=== PATIENT | male | born 1985 | race American Indian/Alaskan Native ===

== ENCOUNTER 2023-10-20 05:59 | Emergency (ER) | payer OTHER, SELFPAY ==
[2023-10-20 06:08] VITALS: BP 131/75; PULSE 96; RESP 18; TEMP 37.4; O2SAT 98; BMI 36.1
--- NOTE | 2023-10-20 06:18 | ED.GENADULT ---
HPI - General Adult <May Llanos DO - Last Filed: 10/21/23 06:07> General Chief complaint: Dental/Oral Stated complaint: throat swollen Time Seen by Provider: 10/20/23 06:17 Source: patient, RN notes reviewed and old records reviewed Mode of arrival: Ambulatory Limitations: no limitations History of Present Illness HPI narrative: 38-year-old male former smoker presents with complaint of his throat being swollen and painful for the past 3 days with fevers overnight. Patient states has pain bilaterally and into both ears. Has not had fevers he has been hoarse. He has been able to swallow his secretions but it is quite painful. Patient states came in tonight because it was painful but also little bit difficult to breathe because he felt like the back of his throat/tonsils were so swollen. Patient denies any chest pain or shortness of breath no nausea or vomiting, no abdominal pain. He has had some mild diarrhea. Denies any urinary symptoms. No rash or skin changes. Patient states he had recurrent tonsillitis multiple times would be in the hospital unclear if these were ER visits or actually admitted but would receive fluids, pain medication steroids have improvement and then be discharged. Was told to have episodes of tonsillitis documented to have his tonsils out and then had. About 8 years without any symptoms until this recent episode. Patient notes he has not allergy to penicillin, states this includes amoxicillin. Patient states no daily prescription medications. Denies any prior surgeries. Former smoker, no regular alcohol or recreational drugs. He is visiting for he from [place] for a . Related Data Previous Rx's Medication Instructions Recorded clindamycin HCl 300 mg capsule 300 mg PO Q8H #30 caps 10/20/23 prednisone 20 mg tablet 40 mg (2 x 20 mg) PO DAILY #10 tabs 10/20/23 Allergies Allergy/AdvReac Type Severity Reaction Status Date / Time Penicillins Allergy Severe Anaphylaxis Verified 10/20/23 06:07 Review of Systems <May Llanos DO - Last Filed: 10/21/23 06:07> Review of Systems ROS Unobtainable: All systems reviewed & are unremarkable except as noted in HPI and below Patient History <May Llanos DO - Last Filed: 10/21/23 06:07> Social History Smoking Status: Former smoker Smoking Status: Former smoker Substance Use Type: does not use Exam <May Llanos DO - Last Filed: 10/21/23 06:07> Narrative Exam Narrative: GEN: Well-nourished male, alert and oriented x 3, patient appears to be in mild distress. HEENT: Atraumatic, pupils are equal round reactive to light, extraocular movements are intact, nares are clear, TMs are clear with no fluid, there is no conjunctival pallor. Throat is erythematous, bilateral tonsillar enlargement, uvula is midline, patient has quite sedate tonsils are about 4+, patient is hoarse but not muffled. Able to swallow secretions. Patient is able to lay back on the bed as well. Bilateral cervical lymphadenopathy. HEART: Regular rate and rhythm without murmur, clicks, rubs. No carotid bruits, pulses are equal in upper and lower extremities LUNGS:Lungs clear to auscultation, no wheezes, rales, crackles, chest moves symmetrically ABD:bowel sounds normal, soft, non-tender, no guarding, rebound, rigidity, no masses noted, no hepatosplenomegaly MSCL: full range of motion, normal gait NEURO:CN 2-12 intact, sensation normal. SKIN: No rash, erythema or other skin changes noted. Initial Vital Signs Initial Vital Signs: Vital Signs Temperature 99.3 F 10/20/23 06:08 Pulse Rate 96 H 10/20/23 06:08 Respiratory Rate 18 10/20/23 06:08 Blood Pressure 131/75 10/20/23 06:08 Pulse Oximetry 98 10/20/23 06:08 Oxygen Delivery Method Room Air 10/20/23 06:08 <Ashlie Cooper DO - Last Filed: 10/20/23 08:57> Initial Vital Signs Initial Vital Signs: Vital Signs Temperature 99.3 F 10/20/23 06:08 Pulse Rate 96 H 10/20/23 06:08 Respiratory Rate 18 10/20/23 06:08 Blood Pressure 131/75 10/20/23 06:08 Pulse Oximetry 98 10/20/23 06:08 Oxygen Delivery Method Room Air 10/20/23 06:08 Course <May Llanos DO - Last Filed: 10/21/23 06:07> Orders Ordered: Discontinued Medications Dexamethasone (Dexamethasone 10 Mg/Ml Vial) 10 mg IV NOW ONE Stop: 10/20/23 06:28 Last Admin: 10/20/23 06:40 Dose: 10 mg Documented By: Sodium Chloride (Normal Saline 0.9%) 1,000 mls @ 1,000 mls/hr IV BOLUS ONE Stop: 10/20/23 07:26 Last Infusion: 10/20/23 07:37 Dose: Infused Documented By: Admin: 10/20/23 06:41 Dose: 1,000 mls/hr Documented By: Clindamycin Phosphate (Cleocin) 900 mg in 50 mls @ 50 mls/hr IV NOW ONE Stop: 10/20/23 07:27 Last Infusion: 10/20/23 07:37 Dose: Infused Documented By: Admin: 10/20/23 06:40 Dose: 50 mls/hr Documented By: Sodium Chloride (Normal Saline 0.9%) 1,000 mls @ 1,000 mls/hr IV BOLUS ONE Stop: 10/20/23 08:17 Last Admin: 10/20/23 07:36 Dose: 1,000 mls/hr Documented By: KAMLESH Ketorolac Tromethamine (Ketorolac 30 Mg/Ml Vial) 15 mg IV NOW ONE Stop: 10/20/23 06:28 Last Admin: 10/20/23 06:40 Dose: 15 mg Documented By: Vital Signs Vital signs: Vital Signs - 8 hr 10/20/23 06:08 10/20/23 06:59 10/20/23 07:00 Temperature 99.3 F Pulse Rate 96 H 92 H 91 H Respiratory Rate 18 Blood Pressure 131/75 Pulse Oximetry 98 98 97 Oxygen Delivery Method Room Air 10/20/23 07:00 10/20/23 07:30 10/20/23 07:30 Temperature Pulse Rate 82 Respiratory Rate Blood Pressure 142/84 H 120/70 Pulse Oximetry 96 Oxygen Delivery Method 10/20/23 08:00 10/20/23 08:00 Temperature Pulse Rate 82 Respiratory Rate Blood Pressure 111/59 L Pulse Oximetry 95 Oxygen Delivery Method <Ashlie Cooper DO - Last Filed: 10/20/23 08:57> Orders Ordered: Discontinued Medications Dexamethasone (Dexamethasone 10 Mg/Ml Vial) 10 mg IV NOW ONE Stop: 10/20/23 06:28 Last Admin: 10/20/23 06:40 Dose: 10 mg Documented By: Sodium Chloride (Normal Saline 0.9%) 1,000 mls @ 1,000 mls/hr IV BOLUS ONE Stop: 10/20/23 07:26 Last Infusion: 10/20/23 07:37 Dose: Infused Documented By: Admin: 10/20/23 06:41 Dose: 1,000 mls/hr Documented By: AB Clindamycin Phosphate (Cleocin) 900 mg in 50 mls @ 50 mls/hr IV NOW ONE Stop: 10/20/23 07:27 Last Infusion: 10/20/23 07:37 Dose: Infused Documented By: Admin: 10/20/23 06:40 Dose: 50 mls/hr Documented By: AB Sodium Chloride (Normal Saline 0.9%) 1,000 mls @ 1,000 mls/hr IV BOLUS ONE Stop: 10/20/23 08:17 Last Admin: 10/20/23 07:36 Dose: 1,000 mls/hr Documented By: KAMLESH Ketorolac Tromethamine (Ketorolac 30 Mg/Ml Vial) 15 mg IV NOW ONE Stop: 10/20/23 06:28 Last Admin: 10/20/23 06:40 Dose: 15 mg Documented By: Vital Signs Vital signs: Vital Signs - 8 hr 10/20/23 06:08 10/20/23 06:59 10/20/23 07:00 Temperature 99.3 F Pulse Rate 96 H 92 H 91 H Respiratory Rate 18 Blood Pressure 131/75 Pulse Oximetry 98 98 97 Oxygen Delivery Method Room Air 10/20/23 07:00 10/20/23 07:30 10/20/23 07:30 Temperature Pulse Rate 82 Respiratory Rate Blood Pressure 142/84 H 120/70 Pulse Oximetry 96 Oxygen Delivery Method 10/20/23 08:00 10/20/23 08:00 Temperature Pulse Rate 82 Respiratory Rate Blood Pressure 111/59 L Pulse Oximetry 95 Oxygen Delivery Method Medical Decision Making <May Llanos DO - Last Filed: 10/21/23 06:07> Lab Data 10/20/23 06:46 10/20/23 06:46 Labs: Lab Results 10/20/23 10/20/23 Range/Units 06:46 07:15 WBC 11.4 H (4.5-11.0) X10^3/uL RBC 5.66 (4.5-5.9) X10^6/uL Hgb 15.5 (13.5-17.5) g/dL Hct 46.1 (41-53) % MCV 81.4 (80-100) fL MCH 27.3 (26-34) PG MCHC 33.5 (30-36) % RDW 14.2 (11.6-14.8) % Plt Count 301 (150-400) X10^3/uL Neut % (Auto) 72.9 (50-75) % Lymph % (Auto) 16.8 L (25-40) % [place] % (Auto) 8.4 (3-14) % Eos % (Auto) 1.4 L (2-4) % Baso % (Auto) 0.5 (0-2) % Neut # (Auto) 8300 H (8031-7952) /uL Lymph # (Auto) 1900 (2798-7532) /uL [place] # (Auto) 1000 H (0-900) /uL Eos # (Auto) 200 (0-450) /uL Baso # (Auto) 100 (0-100) /uL Sodium 136 L (137-145) mmol/L Potassium 3.9 (3.4-5.1) mmol/L Chloride 105 (98-107) mmol/L Carbon Dioxide 22 (22-32) mmol/L BUN 8 L (9-20) mg/dL Creatinine 0.56 L (0.66-1.25) mg/dL Estimated GFR > 60 (>60) mL/min BUN/Creatinine Ratio 14.3 (6-22) Glucose 326 H (70-100) mg/dL Calcium 8.8 (8.4-10.2) mg/dL Total Bilirubin 0.8 (0.2-1.3) mg/dL AST 26 (17-59) IU/L ALT 48 (<50) IU/L Alkaline Phosphatase 163 H (38-126) U/L Total Protein 7.6 (6.3-8.2) g/dL Albumin 4.1 (3.5-5.0) g/dL Globulin 3.5 (1.7-4.1) g/dL Albumin/Globulin Ratio 1.2 (1.0-2.8) Group A Strep (PCR) Negative (Negative) MDM Narrative Medical decision making narrative: 38-year-old male has bilateral tonsillar enlargement most consistent with pharyngitis/tonsillitis but patient is hoarse, can swallow secretions but appears uncomfortable we will give fluids, steroid, Toradol dose of antibiotic rapid strep was sent but throat culture was included as patient does meet [facility] criteria for antibiotics. He is afebrile here but has been febrile subjectively at home. Labs are pending Patient signed out to Dr. Cooper while awaiting workup. <Ashlie Cooper, DO - Last Filed: 10/20/23 08:57> Lab Data Labs: Lab Results 10/20/23 10/20/23 Range/Units 06:46 07:15 WBC 11.4 H (4.5-11.0) X10^3/uL RBC 5.66 (4.5-5.9) X10^6/uL Hgb 15.5 (13.5-17.5) g/dL Hct 46.1 (41-53) % MCV 81.4 (80-100) fL MCH 27.3 (26-34) PG MCHC 33.5 (30-36) % RDW 14.2 (11.6-14.8) % Plt Count 301 (150-400) X10^3/uL Neut % (Auto) 72.9 (50-75) % Lymph % (Auto) 16.8 L (25-40) % [place] % (Auto) 8.4 (3-14) % Eos % (Auto) 1.4 L (2-4) % Baso % (Auto) 0.5 (0-2) % Neut # (Auto) 8300 H (6574-3702) /uL Lymph # (Auto) 1900 (1948-0681) /uL [place] # (Auto) 1000 H (0-900) /uL Eos # (Auto) 200 (0-450) /uL Baso # (Auto) 100 (0-100) /uL Sodium 136 L (137-145) mmol/L Potassium 3.9 (3.4-5.1) mmol/L Chloride 105 (98-107) mmol/L Carbon Dioxide 22 (22-32) mmol/L BUN 8 L (9-20) mg/dL Creatinine 0.56 L (0.66-1.25) mg/dL Estimated GFR > 60 (>60) mL/min BUN/Creatinine Ratio 14.3 (6-22) Glucose 326 H (70-100) mg/dL Calcium 8.8 (8.4-10.2) mg/dL Total Bilirubin 0.8 (0.2-1.3) mg/dL AST 26 (17-59) IU/L ALT 48 (<50) IU/L Alkaline Phosphatase 163 H (38-126) U/L Total Protein 7.6 (6.3-8.2) g/dL Albumin 4.1 (3.5-5.0) g/dL Globulin 3.5 (1.7-4.1) g/dL Albumin/Globulin Ratio 1.2 (1.0-2.8) Group A Strep (PCR) Negative (Negative) MDM Narrative Medical decision making narrative: 38-year-old male has bilateral tonsillar enlargement most consistent with pharyngitis/tonsillitis but patient is hoarse, can swallow secretions but appears uncomfortable we will give fluids, steroid, Toradol dose of antibiotic rapid strep was sent but throat culture was included as patient does meet [facility] criteria for antibiotics. He is afebrile here but has been febrile subjectively at home. Labs are pending Patient signed out to Dr. Cooper while awaiting workup. Patient signed out to Me by Dr. Llanos I have seen evaluated patient myself. He is currently sleeping lying flat easily arousable no issue with airway. Difficult to see in the back but again he is uvula there is no swelling or deviation strep is negative blood work has been . He has mild leukocytosis of 11.4 with mild left shift, electrolytes are stable kidney function is within in normal limits creatinine 0.56 glucose is elevated at 326 he has no history of diabetes but was also given dexamethasone Throat cultures pending rapid strep is negative Possible viral pharyngitis versus other group strep Based on patient's history we will go ahead and treat him with antibiotics he has had reactions to penicillins we will start him on clindamycin and prednisone. Encouraged him to stay hydrated Discharge Plan Departure Patient Disposition: Home Clinical Impression: Acute tonsillitis Instructions: DI for Pharyngitis/Tonsillopharyngitis -- Adult Activity Restrictions/Additional Instructions: *You have been diagnosed with tonsillitis *What to do: At this time increase fluids as tolerated recommend an electrolyte fluid may eat as tolerated. Your rapid strep is negative however your throat cultures pending. We will put on antibiotic Your sugar is also elevated I do recommend you check with primary care provider for diabetes *Continue to take medications as directed--> [facility] [place] Clindamycin 300 mg 3 times a day for 10 days Prednisone 40 mg once a day for 5 to Tylenol 1000 mg every 6 hours if needed for pain *Follow up with your primary care provider in 2-3 days or call [phone] *Return to ER if you should have increasing pain difficulty swallowing unable to swallow your own spit or any new, worsening or concerning symptoms Prescriptions: New clindamycin HCl 300 mg capsule 300 mg PO Q8H Qty: 30 0RF prednisone 20 mg tablet 40 mg PO DAILY Qty: 10 0RF Stand Alone Forms: Patient Portal/API
[2023-10-20] MEDS: CLINDAMYCIN 900 MG/50 ML PIGGYBACK 50 MG IV (06:40)
[2023-10-20] MEDS: DEXAMETHASONE 10 MG/ML VIAL IV (06:40)
[2023-10-20] MEDS: KETOROLAC 30 MG/ML VIAL 15 MG IV (06:40)
[2023-10-20] MEDS: SODIUM CHLORIDE 0.9% 1,000 ML 1000 ML IV ×2 (06:41→07:36)
[2023-10-20 06:59] VITALS: PULSE 92; O2SAT 98
[2023-10-20 07:00] VITALS: BP 142/84; PULSE 91; O2SAT 97
[2023-10-20 07:13] LABS: Add Manual Diff / Slide Review NO; Basophils Absolute Auto 100 /uL (0-100); Basophils Percent Auto 0.5 % (0-2); Eosinophils Absolute Auto 200 /uL (0-450); Eosinophils Percent Auto 1.4 % (2-4); Hematocrit 46.1 % (41-53); Hemoglobin 15.5 g/dL (13.5-17.5); Lymphocytes Absolute Auto 1900 /uL (1100-4500); Lymphocytes Percent Auto 16.8 % (25-40); Mean Corpuscular HGB Conc 33.5 % (30-36); Mean Corpuscular Hemoglobin 27.3 PG (26-34); Mean Corpuscular Volume 81.4 fL (80-100); Monocytes Absolute Auto 1000 /uL (0-900); Monocytes Percent Auto 8.4 % (3-14); Neutrophils Absolute Auto 8300 /uL (1500-7000); Neutrophils Percent Auto 72.9 % (50-75); Platelet Count 301 X10^3/uL (150-400); Red Blood Cell Count 5.66 X10^6/uL (4.5-5.9); Red Cell Distribution Width 14.2 % (11.6-14.8); White Blood Cell Count 11.4 X10^3/uL (4.5-11.0)
[2023-10-20 07:30] VITALS: BP 120/70; PULSE 82; O2SAT 96
[2023-10-20 07:33] LABS: Strep Grp A by PCR Rapid Negative (Negative)
[2023-10-20 07:34] LABS: Alanine Aminotransferase 48 IU/L (<50); Albumin 4.1 g/dL (3.5-5.0); Albumin Globulin Ratio 1.2 (1.0-2.8); Alkaline Phosphatase 163 U/L (38-126); Aspartate Aminotransferase 26 IU/L (17-59); BUN Creatinine Ratio 14.3 (6-22); Bilirubin Total 0.8 mg/dL (0.2-1.3); Blood Urea Nitrogen 8 mg/dL (9-20); Calcium 8.8 mg/dL (8.4-10.2); Carbon Dioxide 22 mmol/L (22-32); Chloride 105 mmol/L (98-107); Estimated Glomerular Filt Rate > 60 mL/min (>60); Globulin 3.5 g/dL (1.7-4.1); Glucose 326 mg/dL (70-100); HEMOLYSIS < 15 (0-50); Potassium 3.9 mmol/L (3.4-5.1); Sodium 136 mmol/L (137-145); Total Protein 7.6 g/dL (6.3-8.2)
[2023-10-20 08:00] VITALS: BP 111/59; PULSE 82; O2SAT 95
== END 2023-10-20 08:31 | disposition home or self-care (01) ==
PROVIDERS: Emergency Medicine; Emergency Provider Emergency Medicine
DX: J03.90 Acute tonsillitis, unspecified (principal); Z11.52 Encounter for screening for COVID-19
CPT/HCPCS: 80053; 85025; 87070; 87651; 96361; 96365; 96375; 99283; 99284; J1100; J1885